=== PATIENT | female | born 1965 | race Caucasian/White ===

== ENCOUNTER 2024-07-15 13:26 | Emergency (ER) | payer OTHER ==
[~2024-07-15] VITALS: Ht 167.6 cm; Wt 83.9 kg
[2024-07-15] MEDS ORDERED: METF500 PO (13:57)
[2024-07-15] MEDS ORDERED: GLIM2 PO (13:57)
[2024-07-15] MEDS ORDERED: ROSUVASTATIN CA10 MG PO (13:58)
[2024-07-15] MEDS ORDERED: PIOG45 PO (13:58)
[2024-07-15] MEDS ORDERED: VENL150ER PO (13:59)
[2024-07-15] MEDS ORDERED: TESTOSTERONE100 MG IL (13:59)
[2024-07-15] MEDS ORDERED: PROG100 PO (14:00)
[2024-07-15] MEDS ORDERED: CLIMARA1 EACH PO (14:00)
[2024-07-15 14:11] LABS: BASOPHILS ABSOLUTE AUTO 0.05 K/mm3 (0.00-0.23); BASOPHILS PERCENT AUTO 1 % (0-2); EOSINOPHILS ABSOLUTE AUTO 0.13 K/mm3 (0.00-0.68); EOSINOPHILS PERCENT AUTO 2 % (0-6); Hemoglobin 13.7 g/dL (11.5-16.0); IMMATURE GRAN ABSOLUTE AUTO 0.02 K/mm3 (0.00-0.10); IMMATURE GRAN PERCENT AUTO 0 % (0-1); LYMPHOCYTES ABSOLUTE AUTO 2.53 K/mm3 (0.84-5.20); LYMPHOCYTES PERCENT AUTO 33 % (21-46); MONOCYTES ABSOLUTE AUTO 0.46 K/mm3 (0.16-1.47); MONOCYTES PERCENT AUTO 6 % (4-13); Mean Corpuscular HGB 26.7 pg (26.0-34.0); Mean Corpuscular HGB Conc 31.9 g/dL (31.5-36.5); Mean Corpuscular Volume 84 fL (80-100); Mean Platelet Volume 9.5 fL (9.1-12.4); NEUTROPHILS ABSOLUTE AUTO 4.38 K/mm3 (1.96-9.15); NEUTROPHILS PERCENT AUTO 58 % (41-73); Platelet Count 271 K/mm3 (150-400); RDW Standard Deviation 39.7 fL (35.1-46.3); Red Blood Cell Count 5.13 M/mm3 (3.80-5.20); White Blood Cell Count 7.57 K/mm3 (4.00-11.30)
[2024-07-15 14:32] LABS: Albumin, Blood 3.4 g/dL (3.4-5.0); Bilirubin, Total 0.6 mg/dL (0.1-1.0); Bun/Creatinine Ratio 22.3 (12.0-20.0); Creatinine, Blood 0.72 mg/dL (0.40-1.00); Globulin, Blood 3.4 g/dL (2.2-4.0); Potassium, Blood 4.2 mmol/L (3.5-5.5); Total Protein, Blood 6.8 g/dL (6.4-8.2)
[2024-07-15] MEDS ORDERED: NS 1,000 ML IV SCH (14:50)
== END 2024-07-15 16:26 | disposition home or self-care (01) ==
LOC: ER 13:26
PROVIDERS: Physician Assistant
DX: E87.1 Hypo-osmolality and hyponatremia (principal); E11.9 Type 2 diabetes mellitus without complications; Z79.84 Long term (current) use of oral hypoglycemic drugs; Z79.899 Other long term (current) drug therapy; Z88.5 Allergy status to narcotic agent; Z88.8 Allergy status to other drugs, medicaments and biological substances
CPT/HCPCS: 70450; 71046; 80053; 84484; 85025; 93005; 93010; 96360; 99285-25; J7030

== ENCOUNTER 2024-12-30 14:40 | Emergency (ER) | payer OTHER ==
[~2024-12-30] VITALS: Ht 165.1 cm; Wt 84.8 kg
[~2024-12-30 14:40] MED LIST: CLIMARA1 EACH PO; GLIM2 PO; METF500 PO; PIOG45 PO; PROG100 PO; ROSUVASTATIN CA10 MG PO; TESTOSTERONE100 MG IL; VENL150ER PO
[2024-12-30] MEDS ORDERED: NS 1,000 ML IV SCH (15:50)
[2024-12-30 16:08] LABS: Influenza A, PCR NEGATIVE (NEGATIVE); Influenza B, PCR NEGATIVE (NEGATIVE); Resp Syncytial Virus, PCR NEGATIVE (NEGATIVE); SARS-Cov-2 (COVID-19) PCR, MMC NEGATIVE (NEGATIVE)
[2024-12-30 17:16] LABS: BASOPHILS ABSOLUTE AUTO 0.02 K/mm3 (0.00-0.23); BASOPHILS PERCENT AUTO 0 % (0-2); EOSINOPHILS ABSOLUTE AUTO 0.11 K/mm3 (0.00-0.68); EOSINOPHILS PERCENT AUTO 1 % (0-6); Hematocrit 38.2 % (33.0-51.0); Hemoglobin 12.6 g/dL (11.5-16.0); IMMATURE GRAN ABSOLUTE AUTO 0.01 K/mm3 (0.00-0.10); IMMATURE GRAN PERCENT AUTO 0 % (0-1); LYMPHOCYTES ABSOLUTE AUTO 2.40 K/mm3 (0.84-5.20); LYMPHOCYTES PERCENT AUTO 29 % (21-46); MONOCYTES ABSOLUTE AUTO 0.62 K/mm3 (0.16-1.47); MONOCYTES PERCENT AUTO 8 % (4-13); Mean Corpuscular HGB Conc 33.0 g/dL (31.5-36.5); Mean Corpuscular Volume 82 fL (80-100); NEUTROPHILS ABSOLUTE AUTO 5.02 K/mm3 (1.96-9.15); NEUTROPHILS PERCENT AUTO 62 % (41-73); NRBC ABSOLUTE 0.00 K/mm3 (0.00-0.02); NRBC Auto 0.0 /100 WBC (0.0-0.2); Platelet Count 273 K/mm3 (150-400); RDW Coefficient Variation 13.6 % (11.7-14.2); RDW Standard Deviation 39.8 fL (35.1-46.3)
[2024-12-30 17:46] LABS: Alanine Aminotransfer (ALT/SGP 31.0 U/L (12-78); Albumin, Blood 2.9 g/dL (3.4-5.0); Albumin/Globulin Ratio 0.9 (0.8-1.8); Anion Gap 7.0 mmol/L (3-11); Aspartate Aminotrans (AST/SGOT 11.0 U/L (12-37); Bilirubin, Total 0.5 mg/dL (0.1-1.0); Blood Urea Nitrogen 16.0 mg/dL (8-24); CO2, Blood 25.0 mmol/L (21-32); Calcium, Blood 8.2 mg/dL (8.5-10.1); Chloride, Blood 104.0 mmol/L (98-108); Creatinine, Blood 0.8 mg/dL (0.40-1.00); Globulin, Blood 3.3 g/dL (2.2-4.0); Glucose, Blood 457.0 mg/dL (70-99); Potassium, Blood 4.3 mmol/L (3.5-5.5); Sodium, Blood 132.0 mmol/L (136-145); Total Protein, Blood 6.2 g/dL (6.4-8.2)
[2024-12-30] MEDS ORDERED: Doxycycline Mo100 M1 PO (18:52)
== END 2024-12-30 19:04 | disposition home or self-care (01) ==
LOC: ER 14:40
PROVIDERS: Student in an Organized Health Care Education/Training Program
DX: L03.114 Cellulitis of left upper limb (principal); E11.65 Type 2 diabetes mellitus with hyperglycemia; E86.0 Dehydration; Z88.8 Allergy status to other drugs, medicaments and biological substances; Z79.84 Long term (current) use of oral hypoglycemic drugs; Z79.899 Other long term (current) drug therapy; Z90.49 Acquired absence of other specified parts of digestive tract
CPT/HCPCS: 80053; 85025; 87637; 96360; 99283-25; A9270; J7030

== ENCOUNTER → 2025-01-17 | Outpatient (CLI) | payer OTHER ==
[~2025-01-17] MED LIST changes: +Doxycycline Mo100 M1 PO
[2025-01-17 18:09] LABS: Hematocrit 42.3 % (33.0-51.0); Hemoglobin 14.1 g/dL (11.5-16.0); Mean Corpuscular HGB Conc 33.3 g/dL (31.5-36.5); Mean Corpuscular Volume 82 fL (80-100); NRBC ABSOLUTE 0.00 K/mm3 (0.00-0.02); NRBC Auto 0.0 /100 WBC (0.0-0.2); Platelet Count 285 K/mm3 (150-400); RDW Coefficient Variation 13.2 % (11.7-14.2); RDW Standard Deviation 38.9 fL (35.1-46.3)
[2025-01-17 18:30] LABS: C-REACTIVE PROTEIN, EXT RANGE 0.380 mg/dL (0.000-0.300)
[2025-01-17 19:18] LABS: Alanine Aminotransfer (ALT/SGP 34 U/L (12-78); Albumin, Blood 3.4 g/dL (3.4-5.0); Albumin/Globulin Ratio 0.9 (0.8-1.8); Anion Gap 13 mmol/L (3-11); Aspartate Aminotrans (AST/SGOT 17 U/L (12-37); Bilirubin, Total 0.7 mg/dL (0.1-1.0); Blood Urea Nitrogen 16 mg/dL (8-24); CHOL/HDL RATIO 2.7; CO2, Blood 23 mmol/L (21-32); Calcium, Blood 9.4 mg/dL (8.5-10.1); Chloride, Blood 99 mmol/L (98-108); Cholesterol 135 mg/dL (50-200); Creatinine, Blood 0.80 mg/dL (0.40-1.00); Globulin, Blood 3.6 g/dL (2.2-4.0); Glucose, Blood 352 mg/dL (70-99); HDL Cholesterol 50 mg/dL (>39); LDL/HDL RATIO 1.1; Low Density Lipoprotein Chol 56 mg/dL (0-110); Potassium, Blood 4.1 mmol/L (3.5-5.5); Sodium, Blood 131 mmol/L (136-145); Thyroid Stimulating Hormone 0.151 uIU/mL (0.360-4.800); Total Protein, Blood 7.0 g/dL (6.4-8.2); Triglycerides 143 mg/dL (30-160); Very Low Density Lipoprot Chol 28 mg/dL (6-32)
== END ==
LOC: LAB 16:30 → LAB SHORT 16:30
PROVIDERS: Family Medicine
DX: L02.11 Cutaneous abscess of neck (principal); E11.65 Type 2 diabetes mellitus with hyperglycemia
CPT/HCPCS: 80053; 80061; 83036; 84443; 85027; 85651; 86140

== ENCOUNTER → 2025-01-31 | Outpatient (CLI) | payer OTHER ==
[2025-01-31 22:22] LABS: Thyroid Stimulating Hormone 0.058 uIU/mL (0.360-4.800)
[2025-02-01 21:08] LABS: THYROGLOBULIN ANTIBODY <1.5 IU/mL (0.0-4.0); THYROID PEROXIDASE (TPO) AB 0.3 IU/mL (0.0-9.0)
== END ==
LOC: LAB SHORT 16:27 → LAB 16:27
PROVIDERS: Family Medicine
DX: E05.90 Thyrotoxicosis, unspecified without thyrotoxic crisis or storm (principal)
CPT/HCPCS: 84439; 84443; 84481; 86376; 86800